=== PATIENT | male | born 1985 | race Caucasian/White ===

== ENCOUNTER → 2022-03-07 13:46 | Emergency (ER) | payer MEDICAID, OTHER ==
[~2022-03-07] VITALS: Ht 190.5 cm; Wt 145.1 kg
[2022-03-07 13:50] VITALS: BP 148/87
== END | disposition left against medical advice (07) ==
LOC: ER 13:46
DX: M25.572 Pain in left ankle and joints of left foot (principal); R22.42 Localized swelling, mass and lump, left lower limb; Z53.21 Procedure and treatment not carried out due to patient leaving prior to being seen by health care provider